=== PATIENT | female | born 1960 | race Caucasian/White ===

== ENCOUNTER 2017-04-02 03:37 | Emergency (ER) | END 2017-04-02 05:13 | disposition home or self-care (01) | DX: L50.9 Urticaria, unspecified (principal); R40.2252 Coma scale, best verbal response, oriented, at arrival to emergency department | CPT/HCPCS: 96374; 96375; J1200; J2930; J7030; Z7502; Z7610 ==

== ENCOUNTER 2017-04-02 18:18 | Emergency (ER) | END 2017-04-02 20:05 | disposition home or self-care (01) | DX: L50.9 Urticaria, unspecified (principal); T78.1XXA Other adverse food reactions, not elsewhere classified, initial encounter | CPT/HCPCS: 96372; J1200; J2930; Z7502 ==